=== PATIENT | male | born 1935 | race Caucasian/White ===

== ENCOUNTER 2021-01-04 01:09 | Inpatient (IN) ==
[2021-01-04 02:26] LABS: Basophils % 0.3 %; Eosinophils # 0.2 K/mcL (0.0-0.6); Eosinophils % 3.5 %; Hematocrit 35.4 % (37.5-50.1); Hemoglobin 12.2 g/dL (12.9-16.9); Immature Granulocytes % 0.2 % (0-4); Lymphocytes # 1.6 K/mcL (0.6-4.6); Lymphocytes % 26.3 %; Mean Corpuscular HGB Conc 34.5 g/dL (31.6-35.5); Mean Corpuscular Hemoglobin 32.5 pg (28.0-33.3); Mean Corpuscular Volume 94.4 fL (83.0-100.0); Mean Platelet Volume 11.5 fL (9.4-12.4); Monocytes # 0.5 K/mcL (0.0-1.3); Monocytes % 8.9 %; Neutrophils # 3.6 K/mcL (1.6-8.9); Platelet Count 162 K/mcL (140-400); Red Blood Count 3.75 M/mcL (4.19-5.50); Segmented Neutrophils % 60.8 %
[2021-01-04 02:38] LABS: INR 1.1; Prothrombin Time 12.4 Seconds (9.4-12.1)
[2021-01-04 02:40] LABS: Activated Partial Thrombo Time 29.4 Seconds (26.0-36.0)
[2021-01-04 02:41] LABS: Calcium 9.1 mg/dL (8.6-10.3); Potassium 3.6 mEq/L (3.5-5.1)
[2021-01-04 02:58] LABS: Troponin I 0.04 ng/mL (< 0.04)
[2021-01-04] MEDS ORDERED: Aspirin 81 MG TAB.CHEW PO ONE (03:08)
[2021-01-04] MEDS ORDERED: Ondansetron ODT 4 MG TAB.RAPDIS SL PRN (04:42)
[2021-01-04] MEDS ORDERED: Naloxone 0.4 MG/ML INJ IVP PRN (04:42)
[2021-01-04] MEDS ORDERED: Acetaminophen 325 MG TABLET PO PRN (04:42)
[2021-01-04] MEDS ORDERED: Perflutren Lipid Microsphere 1.3 ML in 0.9 % Sodium Chloride 8.7 ML IVP PRN (04:45)
[2021-01-04 08:17] LABS: Phosphorous 3.7 mg/dL (2.7-4.5)
[2021-01-04 08:18] LABS: Albumin 3.7 g/dL (3.5-5.7); Albumin/Globulin Ratio 1.6 (1.1-2.2); Bilirubin,Direct 0.1 mg/dL (0.0-0.2); Bilirubin,Indirect 0.4 mg/dL (0.0-1.0); Bilirubin,Total 0.5 mg/dL (0.3-1.0); Globulin 2.3 g/dL (2.4-3.5)
[2021-01-04 08:26] LABS: Thyroid Stimulating Hormone 3.639 mcIU/mL (0.340-5.600)
[2021-01-04 09:27] LABS: Troponin I 0.17 ng/mL (< 0.04)
[2021-01-04] MEDS ORDERED: *HR* Heparin 5,000 UNIT/ML VIAL IVP ONE (11:50)
[2021-01-04] MEDS ORDERED: *HR* Heparin 5,000 UNIT/ML VIAL IVP PRN ×2 (11:50)
[2021-01-04] MEDS ORDERED: *HR* Dextrose 50 % in Water (Vial) 50 ML VIAL IVP PRN (12:01)
[2021-01-04] MEDS ORDERED: Dextrose Gel 15 GM/37.5 ML TUBE PO PRN ×2 (12:01)
[2021-01-04] MEDS ORDERED: D5% in Water 1,000 ML IVC PRN (12:01)
[2021-01-04] MEDS: Heparin 25,000UNIT/250ML 1/2NS 25,000 UNIT/250 ML IV.SOLN IVC SCH (12:34)
[2021-01-04] MEDS: Insulin LISPRO 300 UNITS/3 ML VIAL SUBQ SCH ×3 (12:53→19:51)
[2021-01-04 13:14] LABS: Hematocrit 34.8 % (37.5-50.1); Hemoglobin 12.1 g/dL (12.9-16.9); Mean Corpuscular HGB Conc 34.8 g/dL (31.6-35.5); Mean Corpuscular Hemoglobin 32.9 pg (28.0-33.3); Mean Corpuscular Volume 94.6 fL (83.0-100.0); Mean Platelet Volume 11.7 fL (9.4-12.4); Platelet Count 153 K/mcL (140-400); Red Blood Count 3.68 M/mcL (4.19-5.50); White Blood Count 5.4 K/mcL (4.3-11.1)
[2021-01-04] MEDS ORDERED: Nitroglycerin 0.4 MG TAB.SUBL SL PRN (17:54)
[2021-01-05 02:23] LABS: Basophils % 0.5 %; Eosinophils # 0.3 K/mcL (0.0-0.6); Hematocrit 38.5 % (37.5-50.1); Hemoglobin 13.1 g/dL (12.9-16.9); Immature Granulocytes % 0.3 % (0-4); Lymphocytes # 2.7 K/mcL (0.6-4.6); Lymphocytes % 34.5 %; Mean Corpuscular Volume 94.1 fL (83.0-100.0); Mean Platelet Volume 11.7 fL (9.4-12.4); Monocytes # 0.7 K/mcL (0.0-1.3); Monocytes % 8.5 %; Neutrophils # 4.1 K/mcL (1.6-8.9); Platelet Count 167 K/mcL (140-400); Red Blood Count 4.09 M/mcL (4.19-5.50); Segmented Neutrophils % 52.2 %; White Blood Count 7.8 K/mcL (4.3-11.1)
[2021-01-05 02:34] LABS: Calcium 9.5 mg/dL (8.6-10.3); Estimated Average Glucose 131 mg/dl; Hemoglobin A1C 6.2 %; Potassium 3.7 mEq/L (3.5-5.1)
[2021-01-05 03:36] LABS: Bilirubin,Urine Negative (Negative); Blood,Urine Negative (Negative); Clarity,Urine Clear (Clear); Color,Urine Colorless (Yellow); Glucose,Urine (UA) Normal (Normal); Ketones,Urine Negative (Negative); Leukocyte Esterase,Urine Negative (Negative); Nitrite,Urine Negative (Negative); Protein,Urine Negative (Neg-Trace); Specific Gravity,Urine 1.013 (1.010-1.025); Urobilinogen,Urine Normal (Normal)
[2021-01-05] MEDS: Insulin LISPRO 300 UNITS/3 ML VIAL SUBQ SCH ×4 (08:10→21:11)
[2021-01-05] MEDS: Aspirin 81 MG TAB.CHEW PO SCH (08:38)
[2021-01-05] MEDS ORDERED: lisinopriL 10 MG TABLET PO SCH (09:00)
[2021-01-05] MEDS ORDERED: amLODIPine 5 MG TABLET PO SCH (09:00)
[2021-01-05] MEDS ORDERED: Cyanocobalamin (B-12) 1,000 MCG TABLET PO SCH (09:00)
[2021-01-05] MEDS ORDERED: Heparin 1,000 UNITS/500 mL 500 ML ONE (14:11)
[2021-01-05] MEDS ORDERED: ISOVUE-370 200 ML INFUS..BTL ONE (14:11)
[2021-01-05] MEDS ORDERED: *HR* Heparin 10,000 UNIT/10 ML VIAL ONE (14:11)
[2021-01-05] MEDS ORDERED: 0.9 % Sodium Chloride 1,000 ML ONE (14:11)
[2021-01-05] MEDS ORDERED: Nitroglycerin 1,000 MCG/5 ML VIAL IV ONE (14:12)
[2021-01-05] MEDS ORDERED: *HR* Midazolam HCl 2 MG/2 ML VIAL ONE (14:25)
[2021-01-05] MEDS ORDERED: *HR* FentaNYL (PF) 100 MCG/2 ML VIAL ONE (14:26)
[2021-01-05] MEDS: Heparin 25,000UNIT/250ML 1/2NS 25,000 UNIT/250 ML IV.SOLN IVC SCH (14:29)
[2021-01-05] MEDS: 0.9 % Sodium Chloride 1,000 ML IVC SCH ×2 (17:00→21:26)
[2021-01-06 05:51] LABS: Basophils % 0.6 %; Eosinophils # 0.4 K/mcL (0.0-0.6); Hematocrit 34.7 % (37.5-50.1); Hemoglobin 12.3 g/dL (12.9-16.9); Immature Granulocytes % 0.2 % (0-4); Lymphocytes # 1.6 K/mcL (0.6-4.6); Mean Corpuscular HGB Conc 35.4 g/dL (31.6-35.5); Mean Corpuscular Hemoglobin 33.4 pg (28.0-33.3); Mean Corpuscular Volume 94.3 fL (83.0-100.0); Mean Platelet Volume 11.6 fL (9.4-12.4); Monocytes # 0.7 K/mcL (0.0-1.3); Monocytes % 9.8 %; Neutrophils # 3.9 K/mcL (1.6-8.9); Platelet Count 167 K/mcL (140-400); Red Blood Count 3.68 M/mcL (4.19-5.50); Red Cell Distribution Width 12.1 % (11.5-14.5); Segmented Neutrophils % 59.4 %; White Blood Count 6.6 K/mcL (4.3-11.1)
[2021-01-06 06:13] LABS: Potassium 3.7 mEq/L (3.5-5.1)
[2021-01-06 07:36] VITALS: TEMP 98.2
[2021-01-06] MEDS: Aspirin 81 MG TAB.CHEW PO SCH (08:33)
[2021-01-06] MEDS: Insulin LISPRO 300 UNITS/3 ML VIAL SUBQ SCH (08:36)
[2021-01-06] MEDS ORDERED: Isosorbide MONOnitrate (24 HR) 30 MG TAB.ER.24H PO SCH (09:00)
[2021-01-06 11:09] VITALS: BP 116/69; PULSE 54; O2SAT 92
== END 2021-01-06 14:16 | disposition home or self-care (01) | DRG 281 ==
LOC: 3ANU 01:09 → EMEROOARM 01:09 → SUATTDRO 04:15 → CDU 04:18
PROVIDERS: ADMIT Student in an Organized Health Care Education/Training Program; ATTEND Pharmacist

== ENCOUNTER 2021-04-21 05:53 | Observation (INO) ==
[2021-04-21] MEDS ORDERED: Naloxone 0.4 MG/ML INJ IVP PRN (16:48)
[2021-04-21] MEDS ORDERED: Ondansetron 4 MG/2 ML VIAL IVP PRN (16:48)
[2021-04-21] MEDS ORDERED: *HR* Heparin 5,000 UNIT/ML VIAL IVP PRN ×2 (16:53)
[2021-04-21] MEDS ORDERED: *HR* Heparin 5,000 UNIT/ML VIAL IVP ONE (16:53)
[2021-04-21] MEDS ORDERED: Dextrose Gel 15 GM/37.5 ML TUBE PO PRN ×2 (16:54)
[2021-04-21] MEDS ORDERED: D5% in Water 1,000 ML IVC PRN (16:54)
[2021-04-21] MEDS ORDERED: *HR* Dextrose 50 % in Water (Syg) 50 ML SYRINGE IVP PRN (16:54)
[2021-04-21] MEDS ORDERED: Nitroglycerin 0.4 MG TAB.SUBL SL PRN (17:29)
[2021-04-21] MEDS ORDERED: Perflutren Lipid Microsphere 1.3 ML in 0.9 % Sodium Chloride 8.7 ML IVP PRN (17:38)
[2021-04-21 17:48] LABS: Hematocrit 31.4 % (37.5-50.1); Hemoglobin 10.6 g/dL (12.9-16.9); Mean Corpuscular HGB Conc 33.8 g/dL (31.6-35.5); Mean Corpuscular Hemoglobin 32.3 pg (28.0-33.3); Mean Corpuscular Volume 95.7 fL (83.0-100.0); Mean Platelet Volume 11.2 fL (9.4-12.4); Platelet Count 180 K/mcL (140-400); Red Blood Count 3.28 M/mcL (4.19-5.50); Red Cell Distribution Width 12.7 % (11.5-14.5); White Blood Count 5.9 K/mcL (4.3-11.1)
[2021-04-21 17:49] LABS: Basophils # 0.1 K/mcL (0.0-0.2); Basophils % 0.9 %; Eosinophils # 0.2 K/mcL (0.0-0.6); Eosinophils % 3.4 %; Hemoglobin 10.4 g/dL (12.9-16.9); Immature Granulocytes % 0.2 % (0-4); Lymphocytes # 1.6 K/mcL (0.6-4.6); Lymphocytes % 27.9 %; Mean Corpuscular HGB Conc 32.5 g/dL (31.6-35.5); Mean Corpuscular Hemoglobin 31.3 pg (28.0-33.3); Mean Corpuscular Volume 96.4 fL (83.0-100.0); Mean Platelet Volume 11.1 fL (9.4-12.4); Monocytes # 0.5 K/mcL (0.0-1.3); Monocytes % 9.3 %; Neutrophils # 3.3 K/mcL (1.6-8.9); Platelet Count 168 K/mcL (140-400); Red Blood Count 3.32 M/mcL (4.19-5.50); Red Cell Distribution Width 12.7 % (11.5-14.5); Segmented Neutrophils % 58.3 %; White Blood Count 5.6 K/mcL (4.3-11.1)
[2021-04-21 17:52] LABS: INR 1.3; Prothrombin Time 14.3 Seconds (9.4-12.1)
[2021-04-21 17:53] LABS: Heparin anti-factor XA UFH 0.54 IU/mL (0.30-0.70)
[2021-04-21 18:07] LABS: Estimated Average Glucose 140 mg/dl; Hemoglobin A1C 6.5 %
[2021-04-21] MEDS: Heparin 25,000 UNIT/250 ML 25,000 UNIT/250 ML IV.SOLN IVC SCH (19:51)
[2021-04-21] MEDS: Furosemide 20 MG/2 ML VIAL IVP SCH (19:51)
[2021-04-21] MEDS: Insulin LISPRO 300 UNITS/3 ML VIAL SUBQ SCH (19:55)
[2021-04-22 00:37] LABS: Basophils % 0.6 %; Eosinophils # 0.2 K/mcL (0.0-0.6); Eosinophils % 3.8 %; Hematocrit 31.6 % (37.5-50.1); Hemoglobin 10.3 g/dL (12.9-16.9); Immature Granulocytes % 0.2 % (0-4); Lymphocytes # 1.5 K/mcL (0.6-4.6); Lymphocytes % 23.2 %; Mean Corpuscular HGB Conc 32.6 g/dL (31.6-35.5); Mean Corpuscular Hemoglobin 31.4 pg (28.0-33.3); Mean Corpuscular Volume 96.3 fL (83.0-100.0); Monocytes # 0.6 K/mcL (0.0-1.3); Monocytes % 8.8 %; Platelet Count 167 K/mcL (140-400); Red Blood Count 3.28 M/mcL (4.19-5.50); Red Cell Distribution Width 12.8 % (11.5-14.5); Segmented Neutrophils % 63.4 %; White Blood Count 6.3 K/mcL (4.3-11.1)
[2021-04-22 00:52] LABS: Calcium 8.5 mg/dL (8.6-10.3); Magnesium 1.8 mg/dL (1.6-2.6); Potassium 3.6 mEq/L (3.5-5.1)
[2021-04-22] MEDS: Furosemide 20 MG/2 ML VIAL IVP SCH ×2 (07:07→16:59)
[2021-04-22] MEDS: lisinopriL 10 MG TABLET PO SCH (07:53)
[2021-04-22] MEDS: Aspirin 81 MG TAB.CHEW PO SCH (07:53)
[2021-04-22] MEDS: Insulin LISPRO 300 UNITS/3 ML VIAL SUBQ SCH ×4 (07:54→21:51)
[2021-04-22] MEDS: Isosorbide MONOnitrate (24 HR) 30 MG TAB.ER.24H PO SCH (09:02)
[2021-04-22] MEDS ORDERED: 0.9 % Sodium Chloride 2,000 ML ONE (13:10)
[2021-04-22] MEDS ORDERED: Heparin 1,000 UNITS/500 mL 500 ML ONE (13:10)
[2021-04-22] MEDS ORDERED: *HR* Heparin 10,000 UNIT/10 ML VIAL ONE (13:11)
[2021-04-22] MEDS ORDERED: Nitroglycerin 1,000 MCG/5 ML VIAL IV ONE (13:11)
[2021-04-22] MEDS ORDERED: ISOVUE-370 200 ML INFUS..BTL ONE (13:11)
[2021-04-22] MEDS ORDERED: *HR* Midazolam HCl 2 MG/2 ML VIAL ONE (14:06)
[2021-04-22] MEDS ORDERED: *HR* FentaNYL (PF) 100 MCG/2 ML VIAL ONE (14:06)
[2021-04-22] MEDS: 0.9 % Sodium Chloride 1,000 ML IVC SCH (16:11)
[2021-04-22] MEDS: Heparin 25,000 UNIT/250 ML 25,000 UNIT/250 ML IV.SOLN IVC SCH (16:18)
[2021-04-23] MEDS: 0.9 % Sodium Chloride 1,000 ML IVC SCH ×2 (04:09→11:57)
[2021-04-23] MEDS: Heparin 25,000 UNIT/250 ML 25,000 UNIT/250 ML IV.SOLN IVC SCH (07:41)
[2021-04-23] MEDS: Insulin LISPRO 300 UNITS/3 ML VIAL SUBQ SCH (07:41)
[2021-04-23] MEDS: lisinopriL 10 MG TABLET PO SCH (07:42)
[2021-04-23] MEDS: Aspirin 81 MG TAB.CHEW PO SCH (07:42)
[2021-04-23] MEDS: Furosemide 20 MG/2 ML VIAL IVP SCH (07:42)
[2021-04-23] MEDS: Isosorbide MONOnitrate (24 HR) 30 MG TAB.ER.24H PO SCH (07:43)
[2021-04-23 12:43] VITALS: BP 147/63; PULSE 54; TEMP 99; O2SAT 94
[2021-04-24] MEDS ORDERED: Cyanocobalamin (B-12) 1,000 MCG TABLET PO SCH (09:00)
[2021-04-24] MEDS ORDERED: Isosorbide MONOnitrate (24 HR) 30 MG TAB.ER.24H PO SCH (09:00)
[2021-04-24] MEDS ORDERED: amLODIPine 5 MG TABLET PO SCH (09:00)
[2021-04-24] MEDS ORDERED: Finasteride 5 MG TABLET PO SCH (09:00)
== END 2021-04-23 14:00 | disposition home or self-care (01) ==
LOC: 3NENU → SUATTDRO 13:55
PROVIDERS: ADMIT Student in an Organized Health Care Education/Training Program; ATTEND Internal Medicine